=== PATIENT | male | born 1965 | race Caucasian/White ===

== ENCOUNTER 2021-03-21 07:47 | Outpatient (CLI) | payer OTHER, SELFPAY | END 2021-03-21 07:48 | disposition home or self-care (01) | LOC: WOUND 07:57 | PROVIDERS: Visit Provider Surgery | DX: E11.621 Type 2 diabetes mellitus with foot ulcer (principal); L97.512 Non-pressure chronic ulcer of other part of right foot with fat layer exposed | CPT/HCPCS: 11042; G0463 ==

== ENCOUNTER 2021-03-28 08:03 | Outpatient (CLI) | payer OTHER, SELFPAY | END 2021-03-28 08:04 | disposition home or self-care (01) | LOC: WOUND 08:03 | PROVIDERS: Visit Provider Emergency Medicine | DX: E11.621 Type 2 diabetes mellitus with foot ulcer (principal); L97.512 Non-pressure chronic ulcer of other part of right foot with fat layer exposed | CPT/HCPCS: 11042; 99212 ==

== ENCOUNTER 2021-04-02 08:25 | Outpatient (CLI) | payer OTHER, SELFPAY ==
--- NOTE | 2021-04-02 08:37 | XR_ITS ---
WS: [id number] RIGHT FOOT: 3 VIEW(S) TECHNIQUE: AP, oblique and lateral. HISTORY: DIABETIC WITH FOOT ULCER COMPARISON: None available. Prior bunionectomy. 2 screws in the first metatarsal head with no evidence for lucency or fracture. Normal tarsal/metatarsal alignment. Soft tissue edema surrounding the first toe and metatarsal head. The soft tissue ulceration is not id entified radiographically. No evidence for osteomyelitis. Small calcaneal spur. XR/XR foot RT min 3V* 11300 IMPRESSION: 1. Soft tissue edema surrounding the first toe and first metatarsal head. Soft tissue ulceration not identified radiographically. 2. No osteomyelitis identified radiographically.
== END 2021-04-02 08:26 | disposition home or self-care (01) ==
PROVIDERS: Visit Provider Surgery
DX: E11.621 Type 2 diabetes mellitus with foot ulcer (principal); R60.0 Localized edema
CPT/HCPCS: 73630

== ENCOUNTER 2021-04-04 07:45 | Outpatient (CLI) | payer OTHER, SELFPAY | END 2021-04-04 07:46 | disposition home or self-care (01) | LOC: WOUND 07:46 | PROVIDERS: Visit Provider Surgery | DX: E11.621 Type 2 diabetes mellitus with foot ulcer (principal); L97.512 Non-pressure chronic ulcer of other part of right foot with fat layer exposed | CPT/HCPCS: 11042 ==

== ENCOUNTER 2021-04-11 07:52 | Outpatient (CLI) | payer OTHER, SELFPAY | END 2021-04-11 07:53 | disposition home or self-care (01) | LOC: WOUND 07:53 | PROVIDERS: Visit Provider Surgery | DX: E11.621 Type 2 diabetes mellitus with foot ulcer (principal); L97.512 Non-pressure chronic ulcer of other part of right foot with fat layer exposed | CPT/HCPCS: 11042 ==

== ENCOUNTER 2021-04-18 08:08 | Outpatient (CLI) | payer OTHER, SELFPAY | END 2021-04-18 08:09 | disposition home or self-care (01) | LOC: WOUND 08:09 | PROVIDERS: Visit Provider Surgery | DX: E11.621 Type 2 diabetes mellitus with foot ulcer (principal); L97.512 Non-pressure chronic ulcer of other part of right foot with fat layer exposed | CPT/HCPCS: 11042 ==

== ENCOUNTER 2021-04-25 08:00 | Outpatient (CLI) | payer OTHER, SELFPAY | END 2021-04-25 08:01 | disposition home or self-care (01) | LOC: WOUND 08:01 | PROVIDERS: Visit Provider Nurse Practitioner Family | DX: E11.621 Type 2 diabetes mellitus with foot ulcer (principal); L97.512 Non-pressure chronic ulcer of other part of right foot with fat layer exposed | CPT/HCPCS: 11042 ==

== ENCOUNTER 2021-05-02 07:59 | Outpatient (CLI) | payer OTHER, SELFPAY | END 2021-05-02 08:00 | disposition home or self-care (01) | LOC: WOUND 07:59 | PROVIDERS: Visit Provider Surgery | DX: E11.621 Type 2 diabetes mellitus with foot ulcer (principal); L97.512 Non-pressure chronic ulcer of other part of right foot with fat layer exposed | CPT/HCPCS: 11042 ==

== ENCOUNTER 2021-05-02 09:17 | Outpatient (CLI) | payer OTHER, SELFPAY ==
--- NOTE | 2021-05-02 09:30 | USCV_ITS ---
Meliton Calderon Age: 55 Gender: M : 1965 Exam Date: 05/02/2021 09:44 Ordering Phys: John Gallegos MD Technologist: Ute Luna Exam Location: [facility] – [place] Indication: RIGHT BIG TOE ULCER Risk Factors: Previous Vascular Surgery: RIGHT LEFT BP: 135.0 / BP: 145.0/ 0 0 Waveform Velocity (cm/s) Velocity (cm/s) Waveform Triphasic 75.1 Iliac Prox 84.3 Triphasic Triphasic 79.9 Iliac Mid 74.3 Triphasic Triphasic 78.1 Iliac Distal 86.5 Triphasic Triphasic 77.6 BUYER ASSISTANT 87.2 Triphasic Triphasic 77.2 SFA Prox 77.2 Triphasic Triphasic 66.7 SFA Mid 62.4 Triphasic Triphasic SFA Dist Triphasic 74.3 65.8 Triphasic 56.4 POP 48.7 Triphasic Triphasic 72.6 MOBILITY SCOOTER REPAIRER 51.3 Triphasic Triphasic 77.8 DPA 69.2 Triphasic 1.1 BELLA 1.1 FINDINGS Normal arterial Doppler waveforms Normal Doppler flow velocities Normal resting ABIs bilaterally CONCLUSIONS No evidence of any significant arterial obstruction, based on the above findings. Dr Rancho Fox MD [facility] (Electronically Signed) Final Date: 04 May 2021 18:59 S
== END 2021-05-02 09:18 | disposition home or self-care (01) ==
LOC: RAD 09:20
PROVIDERS: PCP Internal Medicine; Visit Provider Surgery
DX: E11.621 Type 2 diabetes mellitus with foot ulcer (principal); M79.604 Pain in right leg; M79.605 Pain in left leg
CPT/HCPCS: 93925

== ENCOUNTER 2021-05-07 06:00 | Outpatient (CLI) | payer OTHER, SELFPAY | END 2021-05-07 06:01 | disposition home or self-care (01) | LOC: SPT 06-10 17:11 | PROVIDERS: PCP Internal Medicine; Referring Provider Thoracic Surgery (Cardiothoracic Vascular Surgery); Visit Provider Thoracic Surgery (Cardiothoracic Vascular Surgery) | DX: Z46.89 Encounter for fitting and adjustment of other specified devices (principal) | CPT/HCPCS: 97760; L4361 ==

== ENCOUNTER 2021-05-09 08:01 | Outpatient (CLI) | payer OTHER, SELFPAY | END 2021-05-09 08:02 | disposition home or self-care (01) | LOC: WOUND 08:03 | PROVIDERS: PCP Internal Medicine; Visit Provider Nurse Practitioner Family | DX: E11.621 Type 2 diabetes mellitus with foot ulcer (principal); L97.512 Non-pressure chronic ulcer of other part of right foot with fat layer exposed | CPT/HCPCS: 11042 ==

== ENCOUNTER 2021-05-16 07:56 | Outpatient (CLI) | payer OTHER, SELFPAY | END 2021-05-16 07:57 | disposition home or self-care (01) | LOC: WOUND 07:57 | PROVIDERS: PCP Internal Medicine; Visit Provider Surgery | DX: E11.621 Type 2 diabetes mellitus with foot ulcer (principal); L97.512 Non-pressure chronic ulcer of other part of right foot with fat layer exposed | CPT/HCPCS: 11042 ==

== ENCOUNTER 2021-05-23 08:12 | Outpatient (CLI) | payer OTHER, SELFPAY | END 2021-05-23 08:13 | disposition home or self-care (01) | LOC: WOUND 08:17 | PROVIDERS: PCP Internal Medicine; Visit Provider Surgery | DX: E11.621 Type 2 diabetes mellitus with foot ulcer (principal); L97.512 Non-pressure chronic ulcer of other part of right foot with fat layer exposed; I10 Essential (primary) hypertension | CPT/HCPCS: 11042 ==

== ENCOUNTER 2021-05-30 08:00 | Outpatient (CLI) | payer OTHER, SELFPAY | END 2021-05-30 08:01 | disposition home or self-care (01) | LOC: WOUND 08:03 | PROVIDERS: PCP Internal Medicine; Visit Provider Surgery | DX: E11.621 Type 2 diabetes mellitus with foot ulcer (principal); L97.512 Non-pressure chronic ulcer of other part of right foot with fat layer exposed | CPT/HCPCS: 11042 ==

== ENCOUNTER 2021-06-06 08:17 | Outpatient (CLI) | payer OTHER, SELFPAY | END 2021-06-06 08:18 | disposition home or self-care (01) | LOC: WOUND 08:17 | PROVIDERS: PCP Internal Medicine; Visit Provider Nurse Practitioner Family | DX: E11.621 Type 2 diabetes mellitus with foot ulcer (principal); L97.512 Non-pressure chronic ulcer of other part of right foot with fat layer exposed; I10 Essential (primary) hypertension | CPT/HCPCS: 11042 ==

== ENCOUNTER 2021-06-13 08:00 | Outpatient (CLI) | payer OTHER, SELFPAY | END 2021-06-13 08:01 | disposition home or self-care (01) | LOC: WOUND 08:01 | PROVIDERS: PCP Internal Medicine; Visit Provider Surgery | DX: E11.621 Type 2 diabetes mellitus with foot ulcer (principal); L97.512 Non-pressure chronic ulcer of other part of right foot with fat layer exposed; I10 Essential (primary) hypertension | CPT/HCPCS: 11042 ==

== ENCOUNTER 2021-06-27 08:03 | Outpatient (CLI) | payer OTHER, SELFPAY | END 2021-06-27 08:04 | disposition home or self-care (01) | LOC: WOUND 08:04 | PROVIDERS: PCP Internal Medicine; Visit Provider Surgery | DX: I96 Gangrene, not elsewhere classified (principal); E11.621 Type 2 diabetes mellitus with foot ulcer; L97.512 Non-pressure chronic ulcer of other part of right foot with fat layer exposed | CPT/HCPCS: 11042 ==

== ENCOUNTER 2021-07-11 08:00 | Outpatient (CLI) | payer OTHER, SELFPAY | END 2021-07-11 08:01 | disposition home or self-care (01) | LOC: WOUND 08:01 | PROVIDERS: PCP Internal Medicine; Visit Provider Surgery | DX: I96 Gangrene, not elsewhere classified (principal); E11.621 Type 2 diabetes mellitus with foot ulcer; L97.512 Non-pressure chronic ulcer of other part of right foot with fat layer exposed | CPT/HCPCS: 11042 ==

== ENCOUNTER → 2023-01-22 08:18 | Outpatient (BNVA) | payer BC, SELFPAY | PROVIDERS: PCP Internal Medicine; Visit Provider Podiatrist Foot & Ankle Surgery | DX: M20.5X1 Other deformities of toe(s) (acquired), right foot (principal); M20.11 Hallux valgus (acquired), right foot; E11.621 Type 2 diabetes mellitus with foot ulcer; L97.511 Non-pressure chronic ulcer of other part of right foot limited to breakdown of skin; Z79.4 Long term (current) use of insulin | CPT/HCPCS: 73630 ==